=== PATIENT | female | born 1995 | race American Indian/Alaskan Native ===

== ENCOUNTER 2018-07-07 11:58 | Outpatient (CLI) | payer BC ==
[2018-07-07 12:41] LABS: Basophils % (Auto) 0.4 % (0.0-1.8); Eosinophils % (Auto) 0.5 % (0.0-4.3); Hematocrit 37.6 % (30.3-42.9); Hemoglobin 12.6 gm/dl (10.1-14.3); Lymphocytes # (Auto) 1.8 K/mm3 (1.2-5.4); Mean Corpuscular HGB Conc 34 % (30-34); Mean Corpuscular Hemoglobin 30 pg (28-32); Mean Corpuscular Volume 88 fl (79-97); Monocytes # (Auto) 0.3 K/mm3 (0.0-0.8); Monocytes % (Auto) 8.3 % (0.0-7.3); Platelet Count 274 K/mm3 (140-440); Red Blood Count 4.26 M/mm3 (3.65-5.03); Red Cell Distribution Width 13.7 % (13.2-15.2)
[2018-07-07 12:56] LABS: Alanine Aminotransferase 12 units/L (7-56); Albumin 4.5 g/dL (3.9-5); BUN/Creatinine Ratio 15; Blood Urea Nitrogen 9 mg/dL (7-17); Calcium 9.1 mg/dL (8.4-10.2); Chol/HDL Ratio 2.32 %; HDL Cholesterol 68 mg/dL (40-59); Hemolysis Index 6; LDL Cholesterol,Direct 100 mg/dL (50-130)
== END 2018-07-07 11:59 | disposition home or self-care (01) ==
LOC: LAB 11:58
DX: E78.2 Mixed hyperlipidemia (principal); E66.3 Overweight
CPT/HCPCS: 36415; 80053; 80061; 83036; 85025; 87806

== ENCOUNTER 2021-07-10 12:41 | Outpatient (CLI) | payer BC ==
[2021-07-10 13:57] LABS: Hematocrit 38.7 % (30.3-42.9); Hemoglobin 13.1 gm/dl (10.1-14.3); Mean Corpuscular HGB Conc 34 % (30-34); Mean Corpuscular Volume 86 fl (79-97); Platelet Count 335 K/mm3 (140-440); Red Blood Count 4.49 M/mm3 (3.65-5.03); Red Cell Distribution Width 14.3 % (13.2-15.2)
[2021-07-10 13:58] LABS: Alanine Aminotransferase 9 units/L (7-56); Albumin 4.7 g/dL (3.9-5); Blood Urea Nitrogen 7 mg/dL (7-17); Chol/HDL Ratio 2.65 %; HDL Cholesterol 76 mg/dL (40-59); Hemolysis Index 5; LDL Cholesterol,Direct 121 mg/dL (50-130)
[2021-07-10 14:00] LABS: BUN/Creatinine Ratio 12
== END 2021-07-10 12:42 | disposition home or self-care (01) ==
LOC: LAB 12:41
PROVIDERS: ATTEND Internal Medicine
DX: Z00.00 Encounter for general adult medical examination without abnormal findings (principal); Z11.3 Encounter for screening for infections with a predominantly sexual mode of transmission
CPT/HCPCS: 36415; 80053; 80061; 82652; 83036; 84443; 85027; 87591